=== PATIENT | female | born 1975 | race Caucasian/White ===

== ENCOUNTER 2020-06-10 10:01 | Outpatient (CLI) | payer OTHER, SELFPAY ==
--- NOTE | ~2020-06-10 | MM_ITS ---
EXAMINATION: MM screening [place] [facility] w bhavik HISTORY: Screening mammogram TECHNIQUE: Craniocaudal and mediolateral oblique 3-D tomosynthesis images were obtained and synthetic 2-D images were generated. CAD analysis was submitted and interpreted. COMPARISON: 06/08/2019, 06/04/2018 bilateral digital screening mammogram examinations BREAST PARENCHYMAL COMPOSITION: There are scattered areas of fibroglandular density. FINDINGS: Asymmetries are noted posteriorly in the lateral and medial left breast; diagnostic left ma mmogram is recommended, with ultrasound if required. Otherwise there is no evidence of suspicious mass, calcification, or architectural distortion to sug gest malignancy in either breast. There has been no suspicious interval change. IMPRESSION: 1. Left breast mammographic asymmetries on craniocaudal view 2. Diagnostic left mammogram is recommended, with ultrasound if required. BI-RADS Category 0: Incomplete: Needs additional imaging evaluation. Reviewed, dictated and finalized at location A.
== END 2020-06-10 10:02 | disposition home or self-care (01) ==
LOC: ANHIMG 10:05
PROVIDERS: PCP Family Medicine; Visit Provider Obstetrics & Gynecology
DX: Z12.31 Encounter for screening mammogram for malignant neoplasm of breast (principal); R92.8 Other abnormal and inconclusive findings on diagnostic imaging of breast
CPT/HCPCS: 77063; 77067

== ENCOUNTER 2020-07-05 12:25 | Outpatient (CLI) | payer OTHER, SELFPAY ==
--- NOTE | ~2020-07-05 | MM_ITS ---
EXAMINATION: MM diagnostic mammo unilat LT HISTORY: Mammographic asymmetries of left breast on screening craniocaudal view of 06/10/2020 TECHNIQUE: Additional 3-D tomosynthesis images of the left breast were performed and synthetic 2-D im ages were generated. Rolled medial and rolled lateral craniocaudal views of left breast. CAD analysis was submitted and interpreted. COMPARISON: 06/10/2020 bilateral digital screening mammogram FINDINGS: No reproducible mass or architectural distortion. No malignant calcification, skin thickeni ng or retraction. IMPRESSION: 1. No mammographic evidence of malignancy 2. Routine mammographic screening is recommended. BI-RADS Category 1: Negative Reviewed, dictated and finalized at location A.
== END 2020-07-05 12:26 | disposition home or self-care (01) ==
PROVIDERS: PCP Family Medicine; Visit Provider Obstetrics & Gynecology
DX: N64.59 Other signs and symptoms in breast (principal)
CPT/HCPCS: 77065

== ENCOUNTER 2020-10-10 07:34 | Outpatient (CLI) | payer OTHER, SELFPAY ==
[2020-10-10 07:56] LABS: Hematocrit 37.4 % (37.0-47.0); Hemoglobin 12.6 g/dL (12.0-15.0); Mean Corpuscular HGB Conc 33.7 g/dl (32-36); Mean Corpuscular Hemoglobin 29.8 pg (26-34); Mean Corpuscular Volume 88.4 fl (80-100); Mean Platelet Volume 10.9 fl (7.4-10.4); Platelet Count Result 184 k/mm3 (150-375); Red Blood Count 4.23 M/mm3 (4.2-5.4); Red Cell Distribution Width 13.1 % (11.5-14.5); White Blood Count 5.2 K/mm3 (4.5-10.0)
[2020-10-10 08:06] LABS: Anion Gap 5 mmol/L (8-16); Blood Urea Nitrogen 15 mg/dL (7-17); Calcium 8.6 mg/dL (8.4-10.2); Carbon Dioxide 27 mmol/L (22-30); Chloride 105 mmol/L (98-107); Cholesterol 162 mg/dL (0-200); Estimated Glomerular Filt Rate > 60; Glucose 86 mg/dL (65-105); HDL Direct 59 mg/dL; Potassium 4.3 mmol/L (3.4-5.0); Sodium 137 mmol/L (137-145); Triglycerides 54 mg/dL (<150)
[2020-10-10 08:17] LABS: LDL Cholesterol Direct 83 mg/dL
== END 2020-10-10 07:35 | disposition home or self-care (01) ==
PROVIDERS: PCP Family Medicine; Visit Provider Physician Assistant Medical
DX: Z13.220 Encounter for screening for lipoid disorders (principal); Z13.1 Encounter for screening for diabetes mellitus
CPT/HCPCS: 36415; 80048; 80061; 85027

== ENCOUNTER 2021-06-12 08:44 | Outpatient (CLI) | payer OTHER, SELFPAY ==
--- NOTE | ~2021-06-12 | MM_ITS ---
EXAMINATION: MM screening [facility] [place] BI w bhavik HISTORY: Screening mammogram TECHNIQUE: Craniocaudal and mediolateral oblique 3-D tomosynthesis images were obtained and synthetic 2-D images were generated. CAD analysis was submitted and interpreted. COMPARISON: 07/05/2020, 06/10/2020, 06/08/2019, 06/04/2018 BREAST PARENCHYMAL COMPOSITION: There are scattered areas of fibroglandular density. FINDINGS: There is no evidence of suspicious mass, calcification, or architectural distortion to sugg est malignancy in either breast. There has been no suspicious interval change. IMPRESSION: 1. No mammographic evidence of malignancy. 2. Recommend routine screening mammography in one year. BI-RADS Category 1: Negative Reviewed, dictated and finalized at location A.
== END 2021-06-12 08:45 | disposition home or self-care (01) ==
LOC: ANHIMG 08:46
PROVIDERS: PCP Family Medicine; Visit Provider Obstetrics & Gynecology
DX: Z12.31 Encounter for screening mammogram for malignant neoplasm of breast (principal)
CPT/HCPCS: 77063; 77067

== ENCOUNTER 2022-07-18 10:15 | Outpatient (CLI) | payer OTHER, SELFPAY ==
--- NOTE | ~2022-07-18 | MM_ITS ---
EXAMINATION: MM screening [place] [facility] w bhavik HISTORY: Screening mammogram TECHNIQUE: Craniocaudal and mediolateral oblique 3-D tomosynthesis images were obtained and synthetic 2-D images were generated. CAD analysis was submitted and interpreted. COMPARISON: 06/12/2021, 07/05/2020, 06/10/2020 right lateral screening mammogram examinations BREAST PARENCHYMAL COMPOSITION: There are scattered areas of fibroglandular density. FINDINGS: There is no evidence of suspicious mass, calcification, or architectural distortion to sugg est malignancy in either breast. There has been no suspicious interval change. IMPRESSION: 1. No mammographic evidence of malignancy. 2. Recommend routine screening mammography in one year. BI-RADS Category 1: Negative Reviewed, dictated and finalized at location A.
== END 2022-07-18 10:16 | disposition home or self-care (01) ==
PROVIDERS: PCP Family Medicine; Visit Provider Obstetrics & Gynecology
DX: Z12.31 Encounter for screening mammogram for malignant neoplasm of breast (principal)
CPT/HCPCS: 77063; 77067

== ENCOUNTER 2023-08-28 08:34 | Outpatient (CLI) | payer OTHER, SELFPAY ==
--- NOTE | 2023-08-28 09:07 | ECHO_ITS ---
Patient Info Name: Kelechi Benitez Age: 48 years : 1975 Gender: Female Ht: 66 in Wt: 150 lbs BSA: 1.79 m2 HR: 78 bpm BP: 116 / 67 mmHg Technical Quality: Fair Exam Date: 08/28/2023 9:13 AM Exam Location: Echo Lab Patient Status: Outpatient Admit Date: 08/28/2023 Staff Ordering Physician: Bee Loving PAC Engineering Drafter: Cynthia Carson RDCS Attending Provider: Bee Loving PAC Referring Physician: Fabienne BOOKER; Exam Type: CA echo doppler color flow Study Info Indications R01.1 - Cardiac murmur, unspecified Summary 1. Left ventricular chamber dimension is moderately enlarged. 2. Left ventricular systolic function is normal, estimated at 55-60%. 3. The left ventricular diastolic function is grade I diastolic dysfunction. 4. E/e' 5 is not elevated. 5. Global longitudinal strain is normal at -19.8%. 6. Left atrial chamber dimension is mildly enlarged. 7. The aortic valve is bicuspid. 8. There is mild aortic valve sclerosis. 9. There is mild aortic valve regurgitation. 10. There is mild mitral valve regurgitation. 11. There is mild tricuspid valve regurgitation. 12. Mild pulmonary hypertension, estimated pulmonary arterial systolic pressure is 49 mmHg. Left Ventricle E/e' 5 is not elevated. Global longitudinal strain is normal at -19.8%. Left ventricular chamber dimension is moderately enlarged. Left ventricular systolic function is normal, estimated at 55-60%. The left ventricular diastolic function is grade I diastolic dysfunction. Right Ventricle Right ventricular chamber dimension is normal. Right ventricular systolic function is normal. Left Atria Left atrial chamber dimension is mildly enlarged. Right Atria Right atrial chamber dimension is normal. Aortic Valve The aortic valve is bicuspid. There is mild aortic valve sclerosis. There is no aortic valve stenosis. There is mild aortic valve regurgitation. Pulmonic Valve There is no pulmonic regurgitation. Mitral Valve There is no mitral valve stenosis. There is mild mitral valve regurgitation. Tricuspid Valve There is mild tricuspid valve regurgitation. Mild pulmonary hypertension, estimated pulmonary arterial systolic pressure is 49 mmHg. Pericardium/Pleural There is no pericardial effusion. Inferior Vena Cava Normal inferior vena cava with >50% collapse upon inspiration consistent with normal right atrial pressure, 5 mmHg. Aorta The aortic root size at the sinus of Valsalva is normal. Left Ventricular Outflow Tract Name Value Normal LVOT 2D LVOT Diameter 2.1 cm LVOT Doppler LVOT Peak Gradient 8 mmHg LVOT Mean Gradient 4 mmHg LVOT VTI 31 cm LVOT VTI/AV VTI Ratio 0.9 LVOT Stroke Volume 113 ml LVOT CO 21.6 l/min LVOT CI 12.1 l/min/m2 Pulmonic Valve Name Value Normal PV Doppler
== END 2023-08-28 08:35 | disposition home or self-care (01) ==
PROVIDERS: PCP Family Medicine; Visit Provider Physician Assistant Medical
DX: R01.1 Cardiac murmur, unspecified (principal); I35.1 Nonrheumatic aortic (valve) insufficiency; I34.0 Nonrheumatic mitral (valve) insufficiency; I07.1 Rheumatic tricuspid insufficiency; I27.20 Pulmonary hypertension, unspecified; R93.1 Abnormal findings on diagnostic imaging of heart and coronary circulation
CPT/HCPCS: 93306

== ENCOUNTER 2023-08-30 12:18 | Outpatient (CLI) | payer OTHER, SELFPAY ==
--- NOTE | ~2023-08-30 | US_ITS ---
EXAMINATION: US soft tissue head and neck DATE: 08/30/2023 13:01 INDICATION: Posterior neck lump. TECHNIQUE: Multiple grayscale and Doppler ultrasound images of the head and neck were obtained. COMPARISON: Ultrasound 12/12/2018, cervical spine radiographs 12/04/2018 FINDINGS: There is no abnormal mass or lymphadenopathy in the patient's area of concern. IMPRESSION: 1. No abnormal mass or lymphadenopathy in the patient's area of concern. Reviewed, dictated and finalized at location E. SHOP CLEANER
--- NOTE | ~2023-08-30 | MM_ITS ---
EXAMINATION: MM screening [place] [facility] w bhavik HISTORY: Screening TECHNIQUE: Craniocaudal and mediolateral oblique 3-D tomosynthesis images were obtained and synthetic 2-D images were generated. CAD analysis was submitted and interpreted. COMPARISON: Comparison to multiple prior studies sequentially, with oldest reviewed study dated 06/04. BREAST PARENCHYMAL COMPOSITION: Breast composed of scattered areas of fibroglandular density FINDINGS: There is no evidence of suspicious mass, calcification, or architectural distortion to sugg est malignancy in either breast. There has been no suspicious interval change. IMPRESSION: 1. No mammographic evidence of malignancy. 2. Recommend routine screening mammography in one year. BI-RADS Category 1: Negative Reviewed, dictated and finalized at location A. F STRATEGY OFFICER
== END 2023-08-30 12:19 | disposition home or self-care (01) ==
LOC: ANHIMG 12:20
PROVIDERS: PCP Family Medicine; Visit Provider Obstetrics & Gynecology
DX: Z12.31 Encounter for screening mammogram for malignant neoplasm of breast (principal); M79.89 Other specified soft tissue disorders
CPT/HCPCS: 76536; 77063; 77067

== ENCOUNTER 2024-05-31 05:26 | Emergency (ER) | payer OTHER, SELFPAY ==
[2024-05-31] VITALS (8 sets, daily range): BP systolic 101–150; BP diastolic 52–71; PULSE 59–82; RESP 14–20; TEMP 36.4–36.5; O2SAT 98–100
[2024-05-31] MEDS: EPINEPHrine HCL INJ 1 MG/ML AMPUL 0.3 MG IM (05:36)
[2024-05-31] MEDS: methylPREDNISolone SOD SUCC 40 MG VIAL IV PUSH (05:38)
[2024-05-31] MEDS: FAMOTIDINE 20 MG/2 ML VIAL IV PUSH (05:38)
[2024-05-31] MEDS: diphenhydrAMINE HCl INJ 50 MG/ML VIAL 25 MG IV PUSH (05:39)
--- NOTE | 2024-05-31 05:45 | ED.ALLEREA ---
HPI - Allergic Reaction General Chief complaint: Allergic Reaction Stated complaint: allergic reaction Time Seen by Provider: 05/31/24 05:33 History of Present Illness HPI narrative: New patient woke up in the middle night and noticed a very itchy rash between her legs, she initially thought it may a mosquito bites that she took some Benadryl, and then started noticing swelling to her lip, she thought it may be a cold sore so she took Valtrex, and her looked at her today and saw the swelling to her lips and told her to come to the emergency room. She had a similar presentation back in college when she found out she was allergic to penicillins, however she has not taken any new medications, has not had any new new foods or exposures to anything that she knows of. No GI upset, shortness of breath, or sore throat or difficulty breathing Related Data Allergies Allergy/AdvReac Type Severity Reaction Status Date / Time Penicillins Allergy Severe Swelling Verified 05/31/24 05:35 of Lip/Tongue/Throat Review of Systems Review of Systems: All systems reviewed & are unremarkable except as noted in HPI and below [facility] Past Medical History Medical History Abnormal Pap smear of cervix HX CX DYSPLASIA 09/2001 BMI 23.0-23.9, adult Broken arm (~1998) lt arm Encounter for annual routine gynecological examination Encounter for IUD insertion 06/07/11 Mirena insertion Encounter for IUD removal 05/21/12 Mirena removal Screening mammogram, encounter for Surgical History Surgical History H/O LEEP 2000 cervical dysplasia History of 03/25/09 primary c/s--arrest of descent rpt c/s Family History Family History Father Acute myocardial infarction Mother Hypertension Hyperlipidemia Osteoporosis Sibling No problems noted. Other Breast cancer maternal aunt Grandparent Heart disease grandmother Social History Social History Smoking status: Never smoker Second hand tobacco smoke exposure: No Alcohol intake: current Drinks per week: 3 Substance use: never Substance use type: does not use Lack of Transportation: No Lack of Food: Never True Current Housing: I Have Housing Concerned About Future Housing: No Difficulty Paying Gas/Electric Bills: No Difficulty Paying for Meds: No Currently Unemployed: No Education: Bachelor's Degree Difficulty w/ Childcare or Family Care: No Living arrangements: other Additional living arrangements comments: Occupation/Education: occupation Additional occupation/education comments: manager pe Gender identity (if verbalized by the patient): Female Sexual Orientation (if Verbalized by the Patient): Straight or Heterosexual Exam Narrative: EXAMINATION OF ORGAN SYSTEMS/BODY AREAS: Constitutional: Vital signs per nursing GENERAL:[No acute distress, non-toxic appearing.] HEAD: Normal with no signs of head trauma. EYES: Slight periorbital swelling ENT: Swelling to lips comfort small amount of swelling to tongue, normal speech and voice LUNGS: Nonlabored breathing. HEART: [Regular rate and rhythm] ABD: nondistention EXT: Normal range of motion SKIN: Urticaria to thighs NEURO: [Alert and oriented x 3. No gross focal sensory or strength deficits.] PSYCH: Normal affect Course Vital Signs Vital signs: Vital Signs Temperature 97.5 F L 05/31/24 05:31 Pulse Rate 67 05/31/24 05:31 Respiratory Rate 19 05/31/24 05:31 Blood Pressure 150/71 H 05/31/24 05:31 Pulse Oximetry 99 05/31/24 05:31 Oxygen Delivery Room Air 05/31/24 05:31 Temperature 97.5 F L 05/31/24 05:31 Pulse Rate 60 05/31/24 06:31 Respiratory Rate 19 05/31/24 06:31 Blood Pre
[2024-05-31] MEDS: LACTATED RINGERS 1,000 ML 999 ML IV CONT (06:57)
== END 2024-05-31 08:01 | disposition home or self-care (01) ==
PROVIDERS: Emergency Provider Emergency Medicine; PCP Family Medicine
DX: T78.40XA Allergy, unspecified, initial encounter (principal); X58.XXXA Exposure to other specified factors, initial encounter
CPT/HCPCS: 96361; 96372; 96374; 96375; 99284; J0171; J1200; J2919; J7030; J7120

== ENCOUNTER 2024-06-01 12:01 | Observation (INO) | payer OTHER, SELFPAY ==
[2024-06-01] VITALS (10 sets, daily range): BP systolic 104–131; BP diastolic 48–65; PULSE 53–82; RESP 17–20; TEMP 36.3–36.8; O2SAT 95–100; BMI 26.4
--- NOTE | ~2024-06-01 | XR_ITS ---
EXAMINATION: XR chest 1V portable DATE: 06/01/2024 12:51 INDICATION: Anaphylaxis. TECHNIQUE: A single frontal view of the chest was obtained. COMPARISON: None. FINDINGS: There is no pneumonia, pleural effusion, or pneumothorax. The heart size is normal. IMPRESSION: 1. No acute cardiopulmonary disease. Reviewed, dictated and finalized at location A.
--- NOTE | 2024-06-01 12:13 | ECG_ITS ---
Test Date: 2024-06-01 12:27:57 Measurements Intervals [place] Rate: 57 P: 20 WI: 160 QRS: 67 QRSD: 97 T: 23 QT: 424 QTc: 414 Interpretive Statements SINUS BRADYCARDIA WITH SINUS ARRHYTHMIA NONSPECIFIC T-WAVE ABNORMALITY BORDERLINE ECG No previous ECG available for comparison Electronically Signed On 06-01-2024 12:39:11 CDT by Eder Orozco M.D.
--- NOTE | 2024-06-01 12:14 | ED.ALLEREA ---
HPI - Allergic Reaction General Chief complaint: Allergic Reaction Stated complaint: allergic reaction Time Seen by Provider: 06/01/24 12:04 History of Present Illness HPI narrative: This is a 49-year-old female no pertinent past medical history who presents to the ED for recurrent anaphylactic type symptoms. Patient was seen in the emergency department last night for concerns of Inflectra reaction involving bottom lip swelling, diffuse urticaria and subjective shortness of breath. Patient was treated with steroids, Pepcid, epinephrine and felt significantly improved. She was observed for several hours prior to discharge with epinephrine pen. Patient states she went home feeling significant improved however throughout the day and into the night she started developing worsening swelling and rash described as itchy aortic area. She started developing top lip swelling and used her epinephrine injector again at about 230 this morning. She states she tried taking her Pepcid and Benadryl without significant relief throughout the day and proceed to the ER this morning. Presently she is endorsing the urticarial rash which appears to be spreading involving both her arms and legs, chest and hands, feet. She is endorsing top lip swelling which appears to be worsening but does not involve the oropharynx, no difficulty swallowing, no difficulty phonating, no drooling. Able tolerate p.o. intake. She has normal reassuring vital signs. No other recent illnesses or injuries. No recent or new exposures to her knowledge. No new medications or titration is otherwise. Related Data Allergies Allergy/AdvReac Type Severity Reaction Status Date / Time Penicillins Allergy Severe Swelling Verified 06/01/24 12:14 of Lip/Tongue/Throat Review of Systems Review of Systems: As reviewed above in HPI [facility] Past Medical History Medical History Abnormal Pap smear of cervix HX CX DYSPLASIA 09/2001 BMI 23.0-23.9, adult Broken arm (~1998) lt arm Encounter for annual routine gynecological examination Encounter for IUD insertion 06/07/11 Mirena insertion Encounter for IUD removal 05/21/12 Mirena removal Screening mammogram, encounter for Surgical History Surgical History H/O LEEP 2000 cervical dysplasia History of 03/25/09 primary c/s--arrest of descent rpt c/s Family History Family History Father Acute myocardial infarction Mother Hypertension Hyperlipidemia Osteoporosis Sibling No problems noted. Other Breast cancer maternal aunt Grandparent Heart disease grandmother Social History Social History Smoking status: Never smoker Second hand tobacco smoke exposure: No Alcohol intake: current Drinks per week: 4 Substance use: never Substance use type: does not use Do You Feel Safe in your Home?: Yes Lack of Transportation: No Lack of Food: Never True Current Housing: I Have Housing Concerned About Future Housing: No Difficulty Paying Gas/Electric Bills: No Difficulty Paying for Meds: No Currently Unemployed: No Education: Bachelor's Degree Difficulty w/ Childcare or Family Care: No Living arrangements: other Additional living arrangements comments: Occupation/Education: occupation Additional occupation/education comments: manager quality Gender identity (if verbalized by the patient): Female Sexual Orientation (if Verbalized by the Patient): Straight or Heterosexual Spiritual care concerns: No Exam Narrative: GENERAL: [Well-appearing, well-nourished, and in no acute distress.] HEAD: [Normocephalic, atraumatic.] EYES: [PERRLA and EOMI.] ENT: Top lip appears markedly swollen wi
[2024-06-01] MEDS: LACTATED RINGERS 1,000 ML 999 ML IV CONT (12:19)
[2024-06-01] MEDS: EPINEPHrine HCL INJ 1 MG/ML AMPUL 0.5 MG SUB-Q (12:20)
[2024-06-01] MEDS: FAMOTIDINE 20 MG/2 ML VIAL IV PUSH (12:20)
[2024-06-01] MEDS: diphenhydrAMINE HCl INJ 50 MG/ML VIAL IV PUSH ×3 (12:20→22:42)
[2024-06-01] MEDS: methylPREDNISolone SOD SUCC 125 MG VIAL IV PUSH (12:20)
[2024-06-01 12:23] LABS: Basophils Percent Auto 0.1 % (0.2-1.2); Hematocrit 40.2 % (37.0-47.0); Hemoglobin 13.4 g/dL (12.0-15.0); Immature Granulocyte Absolute 0.12 K/mm3 (0.00-0.031); Immature Granulocyte Percent A 0.6 % (0-0.5); Lymphocytes Absolute Auto 0.81 K/mm3 (0.9-3.2); Lymphocytes Percent Auto 4.2 % (18.3-44.2); Mean Corpuscular HGB Conc 33.3 g/dl (32-36); Mean Corpuscular Hemoglobin 30.1 pg (26-34); Mean Corpuscular Volume 90.3 fl (80-100); Mean Platelet Volume 11.4 fl (7.4-10.4); Monocytes Absolute Auto 0.6 K/mm3 (0.1-0.6); Monocytes Percent Auto 3.3 % (2.6-8.5); Neutrophils Absolute Auto 17.7 K/mm3 (1.3-6.7); Neutrophils Percent Auto 91.8 % (45.5-73.1); Platelet Count Result 255 k/mm3 (150-375); Red Blood Count 4.45 M/mm3 (4.2-5.4); Red Cell Distribution Width 13.2 % (11.5-14.5); White Blood Count 19.3 K/mm3 (4.5-10.0)
[2024-06-01 12:36] LABS: Alanine Aminotransferase 21 U/L (6-35); Albumin Level 4.5 g/dL (3.5-5.1); Alkaline Phosphatase 63 U/L (38-126); Anion Gap 13 mmol/L (4-12); Aspartate Amino Transferase 28 U/L (14-36); Bilirubin,Total 0.6 mg/dL (0.2-1.3); Blood Urea Nitrogen 11 mg/dL (7-17); CRP 0.9 mg/dL (<1.0); Calcium 9.7 mg/dL (8.4-10.2); Carbon Dioxide 23 mmol/L (22-30); Chloride 103 mmol/L (98-107); Estimated CRCL calculation 79 ml/min; Estimated Glomerular Filt Rate > 60; Glucose 126 mg/dL (65-110); Potassium 4.2 mmol/L (3.4-5.0); Sodium 139 mmol/L (137-145)
[2024-06-01 12:52] LABS: Erythrocyte Sedimentation Rate 9 mm/hr (0-20)
--- NOTE | 2024-06-01 14:37 | PM.IMHP ---
H&P: HPI History of Present Illness Date/Time: 06/01/24 14:37 Chief Complaint: biphasic anaphylactic reaction Narrative: This is a 49-year-old female patient admitted to the hospital for observation after 2 ER visits for anaphylaxis. Patient reports that around a.m. yesterday morning to patient woke to oral swelling, hives and itching all over. She came to the emergency department where she was treated with Benadryl, steroids Pepcid and epinephrine. Patient was discharged home after resolution of symptoms with prescription for epinephrine pen, Claritin and Pepcid. She felt well at time of discharge but around dinner time she began to have skin itching that returned. She states that she went to bed and woke up around 230 early this morning with swelling primarily of her upper lip as well as all over and a raspy throat but no shortness of breath wheezing or difficulty swallowing. Patient reports that she took the medicine that was prescribed including administering epinephrine pen and thought that she was feeling better so she laid back down did not come in for evaluation at that time. Symptoms returned throughout the morning and patient came back to the emergency department for re-evaluation. While in the emergency department she was treated with IV steroids, Benadryl, Pepcid and larger dose 0.5 mg epinephrine subcutaneous again with resolution of symptoms. Patient was admitted for observation with close monitoring to the IMU. She denies taking any prescription medications or NSAIDs this weekend. She does state that she takes magnesium supplement and another vitamin product [id number]. She thought that the exposure may have been a Lavender oil that she places on her pillows but after the 1st event she threw away her pillow got a new one, changed all bedding and still had return of symptoms while asleep. Patient reports that her son previously underwent allergy workup and has multiple environmental allergies was previously on allergy shots but the patient has only had allergic reaction to penicillin in the past. At time of evaluation patient has minimal itch to the back of her scalp but no remaining symptoms oral swelling, raspy voice, hives or rash. Review of Systems Review of Systems: All systems reviewed & are unremarkable except as noted in HPI and below PMF[facility] Past Medical History Medical History Abnormal Pap smear of cervix HX CX DYSPLASIA 09/2001 BMI 23.0-23.9, adult Broken arm (~1998) lt arm Encounter for annual routine gynecological examination Encounter for IUD insertion 06/07/11 Mirena insertion Encounter for IUD removal 05/21/12 Mirena removal Screening mammogram, encounter for Surgical History Surgical History H/O LEEP 2000 cervical dysplasia History of 03/25/09 primary c/s--arrest of descent rpt c/s Family History Family History Father Acute myocardial infarction Mother Hypertension Hyperlipidemia Osteoporosis Sibling No problems noted. Other Breast cancer maternal aunt Grandparent Heart disease grandmother Social History Social History Smoking status: Never smoker Second hand tobacco smoke exposure: No Alcohol intake: current Drinks per week: 4 Substance use: never Substance use type: does not use Do You Feel Safe in your Home?: Yes Lack of Transportation: No Lack of Food: Never True Current Housing: I Have Housing Concerned About Future Housing: No Difficulty Paying Gas/Electric Bills: No Difficulty Paying for Meds: No Currently Unemployed: No Education: Bachelor's Degree Difficulty w/ Childcare or Family Care: No Living arrangements: other Additional living arrangements comments:
--- NOTE | 2024-06-01 16:12 | ADMGEN ---
This patient, Kelechi Benitez, was admitted to IMU Room 209-01 at 1531. Patient/family oriented to hospital policies and general routines including ID bracelet, bed and alarms, visiting hours, pain management, procedures, bathroom and other care routines, personal items, smoking policy, room service/diet, and visiting hours. Information on how to activate the Rapid Response Team has been discussed. Patient/Family are encouraged to report perceived risks to care and to ask questions if they do not understand what they are told or what they should do.
[2024-06-01] MEDS: FAMOTIDINE 20 MG TABLET PO (20:15)
[2024-06-01] MEDS: LORATADINE 10 MG TABLET PO (20:15)
[2024-06-01] MEDS: methylPREDNISolone SOD SUCC 40 MG VIAL IV PUSH (20:33)
[2024-06-02] VITALS (16 sets, daily range): BP systolic 102–111; BP diastolic 47–55; PULSE 51–101; RESP 16–18; TEMP 36.4–36.9; O2SAT 95–99
[2024-06-02] MEDS: methylPREDNISolone SOD SUCC 40 MG VIAL IV PUSH ×2 (01:22→05:31)
[2024-06-02] MEDS: LORazepam INJ (*CRX) 2 MG/ML VIAL 1 MG IV PUSH (02:24)
[2024-06-02 05:29] LABS: Basophils Percent Auto 0.1 % (0.2-1.2); Hematocrit 40.8 % (37.0-47.0); Hemoglobin 13.2 g/dL (12.0-15.0); Immature Granulocyte Absolute 0.24 K/mm3 (0.00-0.031); Immature Granulocyte Percent A 1.3 % (0-0.5); Lymphocytes Absolute Auto 0.55 K/mm3 (0.9-3.2); Mean Corpuscular HGB Conc 32.4 g/dl (32-36); Mean Corpuscular Hemoglobin 29.8 pg (26-34); Mean Corpuscular Volume 92.1 fl (80-100); Mean Platelet Volume 11.8 fl (7.4-10.4); Monocytes Absolute Auto 0.8 K/mm3 (0.1-0.6); Monocytes Percent Auto 4.3 % (2.6-8.5); Neutrophils Percent Auto 91.3 % (45.5-73.1); Platelet Count Result 246 k/mm3 (150-375); Red Blood Count 4.43 M/mm3 (4.2-5.4); Red Cell Distribution Width 13.5 % (11.5-14.5); White Blood Count 18.6 K/mm3 (4.5-10.0)
[2024-06-02 05:42] LABS: Alanine Aminotransferase 18 U/L (6-35); Albumin Level 3.9 g/dL (3.5-5.1); Alkaline Phosphatase 56 U/L (38-126); Anion Gap 12 mmol/L (4-12); Aspartate Amino Transferase 22 U/L (14-36); Bilirubin,Total 0.5 mg/dL (0.2-1.3); Blood Urea Nitrogen 14 mg/dL (7-17); Calcium 9.3 mg/dL (8.4-10.2); Carbon Dioxide 23 mmol/L (22-30); Chloride 106 mmol/L (98-107); Estimated CRCL calculation 79 ml/min; Estimated Glomerular Filt Rate > 60; Glucose 134 mg/dL (65-110); Magnesium 2.1 mg/dL (1.6-2.3); Potassium 3.9 mmol/L (3.4-5.0); Sodium 141 mmol/L (137-145)
[2024-06-02] MEDS: FAMOTIDINE 20 MG/2 ML VIAL IV PUSH ×2 (09:20→20:25)
[2024-06-02] MEDS: hydrOXYzine HCl 50 MG/ML VIAL IM ×2 (09:20→20:25)
[2024-06-02] MEDS: LORATADINE 10 MG TABLET PO ×2 (09:20→20:25)
[2024-06-02] MEDS: TRIAMCINOLONE ACET 0.1% OINT 15 GM TUBE 1 APPLIC TOPICAL ×2 (09:21→20:26)
[2024-06-02] MEDS: methylPREDNISolone SOD SUCC 125 MG VIAL 60 MG IV PUSH ×3 (09:21→20:25)
[2024-06-02 09:56] LABS: Immunoglobulin A 141 mg/dL (70-400); Immunoglobulin G 697 mg/dL (700-1600); Immunoglobulin M 46 mg/dL (40-230)
[2024-06-02 10:10] LABS: CRP 2.4 mg/dL (<1.0)
[2024-06-02 10:19] LABS: Erythrocyte Sedimentation Rate 13 mm/hr (0-20)
--- NOTE | 2024-06-02 13:03 | PM.IMPN ---
Progress Note: A&P Assessment and Plan (1) Anaphylactic reaction: Code(s): T78.2XXA - Anaphylactic shock, unspecified, initial encounter Status: Acute Assessment and Plan: treated for anaphylactic reaction with resolution of symptoms, administered home treatment including epinephrine pen after symptoms returned then had symptom resolution only for symptoms to return requiring another ER visit with IV medications and subcutaneous epinephrine Unknown source of allergic response, elevated white blood cell count primarily neutrophils with normal CRP and ESR 06/02/24: No longer meeting shock criteria. Etiology of anaphylaxis is uncertain. Pt has no new exposures. She has no new foods, products or other identifiable sources. Possible Autoimmune?? Check labs of IGG, IGM, IGA for deficiency PRN Epinephrine Change Benadryl to Hydroxyzine Increase Solumedrol to 60 mg from 40 mg Add Kenalog ointment Increase Pepcid to BID. (2) Angioedema: Code(s): T78.3XXA - Angioneurotic edema, initial encounter Status: Acute Assessment and Plan: Initial ER visit symptoms included tongue swelling and lips, subsequent visit involved upper lip swelling and raspy voice. patient denied any abdominal pain/cramping nausea vomiting dyspnea wheezing chest tightness. patient admitted to IMU for closer monitoring 06/02/24: See Plan for #1 above. If any acutely worsening symptoms, consider transfer to facility with immunology coverage. Suspect autoimmune component. Time Spent With Patient Time with patient: 25 - 35 minutes Subjective Date/time seen: 06/02/24 0830 Interval history: This pleasant 49 year old female pt who was admitted with anaphylaxis type symptoms was evaluated at the bedside in interval assessment today. She continues to have severe rash, itching and continued swelling about the face despite dosing of IV steroids, epi, H2 antagonist and antihistamines. She denies any difficulty breathing or swallowing. She denies any new contacts, illness symptoms or oteher new acute complaints. Review of Systems Review of Systems: All systems reviewed & are unremarkable except as noted in HPI and below Exam Narrative: GENERAL: Well-appearing, well-nourished, and appears to be having an allergic reaction. HEAD: Normocephalic, atraumatic. ENT:? Mucous membranes moist. no lip or tongue swelling, normal phonation, no stridor, but there is swelling around the bilateral eyes with fluid collection below. Patent oropharynx, no erythema, edema, or exudate noted. CHEST: Clear to auscultation.? No respiratory distress or wheezing HEART: Regular rate and rhythm. ? Normal peripheral pulses. ABDOMEN: Soft, nontender, nondistended. EXTREMITIES: Normal range of motion. No peripheral edema. SKIN: Widespread raised urticarial rash all over the back, extremities, down the right side of her head and face, and chest and abdomen. NEURO: Alert and oriented x3. PSYCH: Normal mood and affect Objective Data Vital Signs Vital Signs: Vital Signs - 24 hr 06/01/24 13:46 06/01/24 14:36 06/01/24 15:13 Temperature Pulse Rate 82 76 63 Respiratory Rate 20 20 19 Blood Pressure 112/53 L 104/52 L 106/63 Pulse Oximetry 100 97 99 Oxygen Delivery 06/01/24 15:18 06/01/24 16:04 06/01/24 16:04 Temperature 97.4 F L Pulse Rate 73 69 58 L Respiratory Rate 19 20 Blood Pressure 109/57 L 109/48 L Pulse Oximetry 98 99 Oxygen Delivery 06/01/24 18:00 06/01/24 19:58 06/01/24 20:00 Temperature 98.3 F Pulse Rate 60 58 L 71 Respiratory Rate 20 Blood Pressure 117/62 Pulse Oximetry 95 Oxygen Delivery 06/01/24 20:00 06/01/24 22:00 06/02/24 00:00 Temperature 98.0 F Pulse Rate 53 L 56 L Respiratory Rate 16 Blood Pressure 106/47 L Pulse Oximetry 95 Oxygen Delivery Room Air 06/02/24 00:00 06/02/24 00:00 06/02/24 02:00 Temperature Pulse Rate 56 L 61 Respiratory Rate B
[2024-06-03] VITALS (13 sets, daily range): BP systolic 101–112; BP diastolic 48–63; PULSE 56–78; RESP 18–20; TEMP 36.3–36.9; O2SAT 94–100
[2024-06-03 04:42] LABS: Basophils Percent Auto 0.1 % (0.2-1.2); Hematocrit 36.5 % (37.0-47.0); Hemoglobin 12.6 g/dL (12.0-15.0); Immature Granulocyte Absolute 0.15 K/mm3 (0.00-0.031); Lymphocytes Absolute Auto 0.66 K/mm3 (0.9-3.2); Lymphocytes Percent Auto 4.4 % (18.3-44.2); Mean Corpuscular HGB Conc 34.5 g/dl (32-36); Mean Corpuscular Hemoglobin 31.3 pg (26-34); Mean Corpuscular Volume 90.8 fl (80-100); Mean Platelet Volume 11.9 fl (7.4-10.4); Monocytes Absolute Auto 0.4 K/mm3 (0.1-0.6); Monocytes Percent Auto 2.6 % (2.6-8.5); Neutrophils Absolute Auto 13.9 K/mm3 (1.3-6.7); Neutrophils Percent Auto 91.9 % (45.5-73.1); Platelet Count Result 232 k/mm3 (150-375); Red Blood Count 4.02 M/mm3 (4.2-5.4); Red Cell Distribution Width 13.5 % (11.5-14.5); White Blood Count 15.1 K/mm3 (4.5-10.0)
[2024-06-03 04:50] LABS: Alanine Aminotransferase 17 U/L (6-35); Albumin Level 3.4 g/dL (3.5-5.1); Alkaline Phosphatase 51 U/L (38-126); Anion Gap 8 mmol/L (4-12); Aspartate Amino Transferase 29 U/L (14-36); Bilirubin,Total 0.4 mg/dL (0.2-1.3); Blood Urea Nitrogen 20 mg/dL (7-17); Calcium 8.8 mg/dL (8.4-10.2); Carbon Dioxide 25 mmol/L (22-30); Chloride 105 mmol/L (98-107); Estimated CRCL calculation 79 ml/min; Estimated Glomerular Filt Rate > 60; Glucose 129 mg/dL (65-110); Magnesium 2.3 mg/dL (1.6-2.3); Sodium 138 mmol/L (137-145)
[2024-06-03] MEDS: hydrOXYzine HCl 50 MG/ML VIAL IM (05:27)
[2024-06-03] MEDS: methylPREDNISolone SOD SUCC 125 MG VIAL 60 MG IV PUSH ×3 (05:27→18:19)
[2024-06-03] MEDS: LORATADINE 10 MG TABLET PO (08:58)
[2024-06-03] MEDS: FAMOTIDINE 20 MG/2 ML VIAL 40 MG IV PUSH ×2 (09:51→16:31)
[2024-06-03 14:03] LABS: ANA Cascade Screen NEGATIVE (NEGATIVE)
--- NOTE | 2024-06-03 16:12 | PM.IMPN ---
Progress Note: A&P Assessment and Plan (1) Anaphylactic reaction: Code(s): T78.2XXA - Anaphylactic shock, unspecified, initial encounter Status: Acute Assessment and Plan: treated for anaphylactic reaction with resolution of symptoms, administered home treatment including epinephrine pen after symptoms returned then had symptom resolution only for symptoms to return requiring another ER visit with IV medications and subcutaneous epinephrine Unknown source of allergic response, elevated white blood cell count primarily neutrophils with normal CRP and ESR 06/03/24: Etiology of anaphylaxis is uncertain. No new exposures observed. Denies new foods, products or other identifiable sources. Possible Autoimmune?? IGG, IGM, IGA results reviewed. CRP elevated with normal eosinophils. Continue PRN Epinephrine Continue Hydroxyzine Continue Solumedrol 60 mg for now. Kenalog ointment Pepcid to BID. U transfer request placed per pt request. (2) Angioedema: Code(s): T78.3XXA - Angioneurotic edema, initial encounter Status: Acute Assessment and Plan: 06/03/24: Resolved/ Plan Patient reports another episode of rash and urticaria early this AM. Transfer to [facility] hospital for further care done per pt request. Continue IV steroids, famotidine and hydroxyzine PRN. Airway intact with no cardiopulmonary symptoms. Time Spent With Patient Time with patient: 25 - 35 minutes Subjective Date/time seen: 06/03/24 10:12 Interval history: This pleasant 49 year old female pt who was admitted with anaphylaxis type symptoms was evaluated at the bedside in interval assessment today. She continues to have severe rash, itching and continued swelling about the face despite dosing of IV steroids, epi, H2 antagonist and antihistamines. She denies any difficulty breathing or swallowing. She denies any new contacts, illness symptoms or oteher new acute complaints. Patient requesting to be transferred to a higher level of care hospital as she feels her symptoms are not improving much. Review of Systems Review of Systems: All systems reviewed & are unremarkable except as noted in HPI and below Exam Narrative: GENERAL: Well-appearing, well-nourished, generalized body rash, mainly to back and LE. HEAD: Normocephalic, atraumatic. ENT:? Mucous membranes moist. no lip or tongue swelling, normal phonation, no stridor. Patent oropharynx, no erythema, edema, or exudate noted. CHEST: Clear to auscultation.? No respiratory distress or wheezing HEART: Regular rate and rhythm. ? Normal peripheral pulses. ABDOMEN: Soft, nontender, nondistended. EXTREMITIES: Normal range of motion. No peripheral edema. SKIN: Widespread raised urticarial rash all over the back, extremities, face, chest and abdomen. NEURO: Alert and oriented x3. PSYCH: Normal mood and affect Psych: Mental Status: mental status grossly normal Affect: normal affect Objective Data Vital Signs Vital Signs: Vital Signs - 24 hr 06/02/24 18:00 06/02/24 19:51 06/02/24 20:00 Temperature 97.6 F Pulse Rate 74 65 65 Respiratory Rate 18 18 Blood Pressure 111/47 L Pulse Oximetry 97 97 Oxygen Delivery Room Air 06/03/24 00:00 06/03/24 00:00 06/03/24 04:00 Temperature 98.1 F Pulse Rate 67 67 67 Respiratory Rate 20 20 20 Blood Pressure 101/53 L Pulse Oximetry 94 94 94 Oxygen Delivery Room Air Room Air 06/03/24 04:19 06/02/24 20:00 06/02/24 22:00 Temperature 98.3 F Pulse Rate 67 61 53 L Respiratory Rate 20 Blood Pressure 101/48 L Pulse Oximetry 94 Oxygen Delivery 06/03/24 00:00 06/03/24 02:00 06/03/24 04:00 Temperature Pulse Rate 61 59 L 61 Respiratory Rate Blood Pressure Pulse Oximetry Oxygen Delivery 06/03/24 06:00 06/03/24 07:50 06/03/24 08:00 Temperature 97.5 F L Pulse Rate 68 78 67 Respiratory Rate 20 Blood Pressure Pulse Oximetry 100 Oxygen Delivery 06/03/24
--- NOTE | 2024-06-03 17:01 | PM.DS ---
DS: Admitting Diagnosis Discharge Date 06/03/24 Admitting Diagnosis Biphasic Anaphylaxis DS: Discharge Diagnosis Discharge Diagnosis (1) Anaphylactic reaction: Code(s): T78.2XXA - Anaphylactic shock, unspecified, initial encounter Status: Acute Assessment and Plan: - Appears to be sresolving. - No cardiopulmonary symptoms noted and rash much improved. (2) Angioedema: Code(s): T78.3XXA - Angioneurotic edema, initial encounter Status: Acute Assessment and Plan: - Resolved. Plan Patient with much improvement to generalized rash of unclear etiology. No cardiopulmonary symptoms noted and airway patent. Patient is medically stable for discharge and states will follow-up with licensing specialist if symptoms return. Patient will be discharged on a tapered steroid dose, famotidine and epinephrine injection. DS: Summary Hospital Course Reason for hospitalization: Anaphylactic shock Hospital Course: Patient is a 49-year-old female patient admitted to the hospital for observation after 2 ER visits for anaphylaxis. Patient reports that around a.m. yesterday morning to patient woke to oral swelling, hives and itching all over. She came to the emergency department where she was treated with Benadryl, steroids Pepcid and epinephrine. Patient was discharged home after resolution of symptoms with prescription for epinephrine pen, Claritin and Pepcid. She felt well at time of discharge but around dinner time she began to have skin itching that returned. She states that she went to bed and woke up around 230 early this morning with swelling primarily of her upper lip as well as all over and a raspy throat but no shortness of breath wheezing or difficulty swallowing. Patient reports that she took the medicine that was prescribed including administering epinephrine pen and thought that she was feeling better so she laid back down did not come in for evaluation at that time. Symptoms returned throughout the morning and patient came back to the emergency department for re-evaluation. While in the emergency department she was treated with IV steroids, Benadryl, Pepcid and larger dose 0.5 mg epinephrine subcutaneous again with resolution of symptoms. Patient was admitted for observation with close monitoring to the IMU and symptoms appear to have much improved, with rash appearing resolved and no cardiopulmonary symptoms noted. Patient is medically stable for home discharge and will follow-up with PCP for further management. Status at Discharge Functional status at discharge: independent ambulation Overall status at discharge: patient is progressing back to baseline Time Spent with Patient Time attestation: Total time spent providing and/or coordinating discharge services: Time spent: Greater than 30 minutes Exam Narrative: GENERAL: Well-appearing, well-nourished, generalized body rash, mainly to back and LE. HEAD: Normocephalic, atraumatic. ENT:? Mucous membranes moist. no lip or tongue swelling, normal phonation, no stridor. Patent oropharynx, no erythema, edema, or exudate noted. CHEST: Clear to auscultation.? No respiratory distress or wheezing HEART: Regular rate and rhythm. ? Normal peripheral pulses. ABDOMEN: Soft, nontender, nondistended. EXTREMITIES: Normal range of motion. No peripheral edema. SKIN: Much improvement to urticarial rash on back, extremities, face, chest and abdomen, compared to earlier this AM. NEURO: Alert and oriented x3. PSYCH: Normal mood and affect Skin: Other: Much improvement in generalized rash compared to earlier today. Psych: Mental Status: mental status grossly normal Affect: normal affect DS: Data Data Completed and Pending Labs on day of discharge: Labs from last 24 hours 06/03/24 06/02/24 04:15 04:53 WBC 15.1 H RBC 4.02 L Hgb 12.6 Hct 36.5 L MCV 90.8 MCH 31.3 D MCHC 34.5 RDW 13.5 Plt Count 232 MPV 11.9 H Immature
== END 2024-06-03 18:36 | disposition home or self-care (01) ==
LOC: ANHED 14:31 → ANHIMU 06-02 06:22
PROVIDERS: Nurse Practitioner; Admitting Provider Internal Medicine; Emergency Provider Student in an Organized Health Care Education/Training Program; PCP Family Medicine; Visit Provider Nurse Practitioner Adult Health
DX: T78.2XXA Anaphylactic shock, unspecified, initial encounter (principal); T78.3XXA Angioneurotic edema, initial encounter
CPT/HCPCS: 36415; 71045; 80053; 82784; 83735; 85025; 85652; 86038; 86140; 86225; 86235; 86364; 93005; 96361; 96372; 96374; 96375; 96376; 99285; A9270; G0378; J0171; J1200; J2060; J2919; J3410; J7120

== ENCOUNTER 2024-08-14 13:28 | Outpatient (CLI) | payer OTHER, SELFPAY ==
[2024-08-14 13:55] LABS: Hematocrit 39.7 % (37.0-47.0); Hemoglobin 13.5 g/dL (12.0-15.0); Mean Corpuscular Hemoglobin 30.1 pg (26-34); Mean Corpuscular Volume 88.4 fl (80-100); Mean Platelet Volume 11.2 fl (7.4-10.4); Platelet Count Result 222 k/mm3 (150-375); Red Blood Count 4.49 M/mm3 (4.2-5.4); Red Cell Distribution Width 12.3 % (11.5-14.5); White Blood Count 6.2 K/mm3 (4.5-10.0)
== END 2024-08-14 13:29 | disposition home or self-care (01) ==
LOC: ANHLAB 13:30
PROVIDERS: PCP Family Medicine; Visit Provider Obstetrics & Gynecology
DX: N92.6 Irregular menstruation, unspecified (principal)
CPT/HCPCS: 36415; 85027

== ENCOUNTER 2024-08-20 01:36 | Day surgery (SDC) | payer OTHER, SELFPAY ==
[2024-08-12 14:08] VITALS: BMI 24.2
--- NOTE | 2024-08-12 14:23 | SUR.PREOP ---
Report to the Outpatient Waiting Room, entrance under the green pavilion located off [facility], at time 7:30a.m. on date 08/20/2024. Planned Procedure Time: 9:30a.m.? Time changes happen often and if your time is changed the preop area will call you the afternoon before. - You and your visitor will be asked to self-screen and do not enter if you have any COVID symptoms. Please call surgeon if you need to reschedule. - A mask is optional within the hospital at this time. Patients may have clear liquids (water, carbonated beverages, clear teas, apple juice) until 3 hours prior to surgery with a maximum of 20 ounces. - No food from midnight until time of surgery and no smoking - Infants may have breast milk until 4 hours before surgery, infant formula 6 hours prior to surgery. - Children will be allowed to drink immediately following surgery.? If applicable, please bring a bottle or sippy cup to assist with drinking. Juice, water, soda, and popsicles are readily available.? For infants on formula, please bring formula the day of surgery.? Pacifiers are allowed. Take only the following medications with a SIP of water on the morning of surgery: N/A DO NOT STOP ANY OF YOUR OTHER PRESCRIPTION MEDICATIONS PRIOR TO SURGERY EXCEPT THE FOLLOWING Medications to discontinue per physician Vitamins Date to take last dose 08/17/2024 Please no make-up, nail japanese, hairspray, perfume, deodorant, or body powder the day of surgery.? No jewelry (including any body piercings) or valuables the day of surgery, leave them at home.? Please take a shower or bath the night before, or the morning of, surgery with an antibacterial soap.? Wear comfortable, loose fitting clothing.? Children are encouraged to wear pajamas. - Jewelry must be removed prior to entering the operating room.? Rings and piercings that are not removed may be cut off. - The hospital will not accept responsibility for valuables.? - Please leave all valuables, including medications, at home the day of surgery. If you are going home after surgery, a licensed otr flatbed driver must drive you home.? - NO public transportation without another adult if you receive anesthesia. - We recommend that an adult stay with you for 24 hours following discharge. - We also recommend that you do not drive, make important decision, drink alcoholic beverages, or take any drugs that were not prescribed by your health care provider for at least 24 hours after your discharge time. For Pediatric surgeries, we recommend two adults accompany the child home. Follow any additional instructions given to you from your surgeon. Telephone instructions given to Kelechi Benitez and asked if any additional questions and then verbalized understanding. Patient advised to call surgeon office or pre surgery nurse liaison [phone] if any additional questions.
[2024-08-20] VITALS (7 sets, daily range): BP systolic 107–124; BP diastolic 46–78; PULSE 55–104; RESP 14–19; TEMP 36.2–36.9; O2SAT 98–100
--- NOTE | 2024-08-20 07:27 | PM.IMHP ---
H&P: HPI History of Present Illness Date/Time: 08/20/24 07:27 49-year-old female presents for treatment of heavy irregular vaginal bleeding. Past 6-8 months cycles of increased in amount 5-7 days 3-5 days heavy clotting cramping significant amount of discomfort during this time as well. Ultrasound revealed mildly enlarged uterus and thickened endometrium but no fibroids or other abnormalities were appreciated. Also desires bilateral salpingectomy, we have discussed the permanence failure rate increased risk of ectopic and regret and patient strongly desires. Chief Complaint: Menometrorrhagia Review of Systems Review of Systems: All systems reviewed & are unremarkable except as noted in HPI and below PMFSH Past Medical History Medical History Abnormal Pap smear of cervix HX CX DYSPLASIA 09/2001 BMI 23.0-23.9, adult Broken arm (~1998) lt arm Encounter for annual routine gynecological examination Encounter for IUD insertion 06/07/11 Mirena insertion Encounter for IUD removal 05/21/12 Mirena removal Screening mammogram, encounter for Surgical History Surgical History H/O LEEP 2000 cervical dysplasia History of 03/25/09 primary c/s--arrest of descent rpt c/s Family History Family History Father Acute myocardial infarction Mother Hypertension Hyperlipidemia Osteoporosis Sibling No problems noted. Other Breast cancer maternal aunt Grandparent Heart disease grandmother Social History Social History Smoking status: Never smoker Second hand tobacco smoke exposure: No Alcohol intake: current Drinks per week: 4 Substance use: never Substance use type: does not use Do You Feel Safe in your Home?: Yes Lack of Transportation: No Lack of Food: Never True Current Housing: I Have Housing Concerned About Future Housing: No Difficulty Paying Gas/Electric Bills: No Difficulty Paying for Meds: No Currently Unemployed: No Education: Bachelor's Degree Difficulty w/ Childcare or Family Care: No Living arrangements: with family Additional living arrangements comments: Occupation/Education: occupation 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 Gender identity (if verbalized by the patient): Female Sexual Orientation (if Verbalized by the Patient): Straight or Heterosexual Spiritual care concerns: No Meds Home Medications and Allergies Home Medications Medication Instructions Recorded Confirmed Type epinephrine 0.3 mg/0.3 mL 0.3 mg (0.3 mL) IM Q5-15M PRN 05/31/24 08/12/24 Rx injection, auto-injector (EpiPen) anaphylaxis #2 ea multivit with minerals-iron 18 1 tablet PO DAILY 08/12/24 08/12/24 History mg-folic ac 400 mcg-vit K 25 mcg tablet (Adults Multivitamin) Allergies Allergy/AdvReac Type Severity Reaction Status Date / Time Penicillins Allergy Severe Swelling Verified 08/12/24 14:08 of Lip/Tongue/Throat diphenhydramine AdvReac Intermediate Agitated Verified 08/12/24 14:08 [From Benadryl] Exam Resp: Effort & Inspection: normal respiratory effort Auscultation: clear to auscultation bilaterally Cardio: Rate: regular rate Rhythm: regular rhythm GI: Inspection: normal to inspection Auscultation: normal bowel sounds : External Female Exam: normal external appearance Speculum Exam - Vagina: normal appearance of the vagina Speculum Exam - Cervix: normal appearance of the cervix Bimanual exam- vagina & uterus: enlarged (8-10 week size) Bimanual Exam- Adnexa, other: normal adnexae Assessment and Plan Assessment and plan (1) Menorrhagia: Code(s): N92.0 - Excessive and frequent menstruation with regular cycle Status: Acute (2) Encounter for female sterilization procedure: Code(s): Z30.2 - Encounter for sterilization Status: Acute Plan 1. Hysteroscopy with D&C as well as endometrial ablation 2. Laparoscopic bilateral salpingectomy
--- NOTE | 2024-08-20 07:30 | WPDHPUPDATE1 ---
History and Physical Update Update Date/Time: 08/20/24 07:30 History and Physical has been reviewed, including an updated exam of the patient. There are NO changes in the patient's condition. Risks, benefits, and alternatives have been discussed and questions answered. Patient agrees to proceed with procedure.
[2024-08-20] MEDS: LACTATED RINGERS 1,000 ML 30 ML IV CONT (08:15)
[2024-08-20] MEDS: ACETAMINOPHEN 500 MG TABLET 1000 MG PO (08:40)
[2024-08-20] MEDS: KETOROLAC 15 MG/ML VIAL (*BKC) IV PUSH (08:41)
[2024-08-20 09:03] LABS: BEDSIDEPREGUCG Negative (Negative)
--- NOTE | 2024-08-20 10:00 | P.PNAN_ITS ---
Anes - Initial Pre Proc Eval Procedure: Operation Date: 08/20/24 09:30 Proposed Procedures p Hysteroscopy Dilation and Curettage with Dahlia Endometrial Ablation - Humberto Chau MD s Bilateral Laparoscopic Salpingectomy - Humberto Chau MD Date/Time: 08/20/24 10:00 Surgeon: Humberto Chau MD Pre Op Diagnosis: abnormal uterine bleeding Patient Data Age: 49 Gender: F Height: 1.68 m Weight: 69.6 kg Last Vital Signs Temp 98.4 F 08/20/24 08:00 Pulse 104 H 08/20/24 08:00 Resp 14 08/20/24 08:00 BP 115/78 08/20/24 08:00 Pulse Ox 98 08/20/24 08:00 O2 Del Method Room Air 08/20/24 08:00 Allergies Allergy/AdvReac Type Severity Reaction Status Date / Time Penicillins Allergy Severe Swelling Verified 08/12/24 14:08 of Lip/Tongue/Throat diphenhydramine AdvReac Intermediate Agitated Verified 08/12/24 14:08 [From Benadl] Home Medications Medication Instructions Recorded Confirmed Type epinephrine 0.3 mg/0.3 mL 0.3 mg (0.3 mL) IM Q5-15M PRN 05/31/24 08/20/24 Rx injection, auto-injector (EpiPen) anaphylaxis #2 ea multivit with minerals-iron 18 1 tablet PO DAILY 08/12/24 08/20/24 History mg-folic ac 400 mcg-vit K 25 mcg tablet (Adults Multivitamin) Laboratory Tests 08/20/24 08:00 POC Urine HCG, Qual Negative (Negative) Results Review: All pre-operative results and documents have been reviewed as part of the pre- operative evaluation. [facility] Past Medical History Medical History Abnormal Pap smear of cervix HX CX DYSPLASIA 09/2001 BMI 23.0-23.9, adult Broken arm (~1998) lt arm Encounter for annual routine gynecological examination Encounter for IUD insertion 06/07/11 Mirena insertion Encounter for IUD removal 05/21/12 Mirena removal Screening mammogram, encounter for Surgical History Surgical History H/O LEEP 2000 cervical dysplasia History of 03/25/09 primary c/s--arrest of descent rpt c/s Family History Family History Father Acute myocardial infarction Mother Hypertension Hyperlipidemia Osteoporosis Sibling No problems noted. Other Breast cancer maternal aunt Grandparent Heart disease grandmother Social History Social History Smoking status: Never smoker Second hand tobacco smoke exposure: No Alcohol intake: current Drinks per week: 4 Substance use: never Substance use type: does not use Do You Feel Safe in your Home?: Yes Lack of Transportation: No Lack of Food: Never True Current Housing: I Have Housing Concerned About Future Housing: No Difficulty Paying Gas/Electric Bills: No Difficulty Paying for Meds: No Currently Unemployed: No Education: Bachelor's Degree Difficulty w/ Childcare or Family Care: No Living arrangements: with family Additional living arrangements comments: Occupation/Education: occupation Additional occupation/education comments: manager privacy Gender identity (if verbalized by the patient): Female Sexual Orientation (if Verbalized by the Patient): Straight or Heterosexual Spiritual care concerns: No Anes - Eval Final PreProcedure Day of Procedure 08/20/24 10:00 Results Review: All pre-operative results and documents have been reviewed as part of the pre- operative evaluation. Informed Consent: The patient's anesthetic plan and its attendant risks and benefits were discussed with the patient/family/POA. Questions were solicited and answers provided to the satisfaction of the patient/family/POA.
[2024-08-20] MEDS: ceFAZolin 2 GM/D5W 50 ML 2 GM/50 ML BAG IVPB (10:19)
[2024-08-20 10:50] LABS: BEDSIDEPREGUCG Negative (Negative)
--- NOTE | 2024-08-20 10:55 | P.OP_ITS ---
Procedure Note - Detailed Date of Procedure 08/20/24 Pre-op Diagnosis 1. Menometrorrhagia 2. Dysmenorrhea 3. Undesired fertility Post-op Diagnosis Same Procedure Performed 1. Hysteroscopy with uterine curettings 2. Ablation 3. laparoscopic bilateral salpingectomy Surgeon Humberto Chau MD Anesthesia General Findings uterus with mildly thickened endometrial cavity. Left fallopian tube with scarring consistent with endometriosis. Description of Procedure Patient prepped and draped in usual manner for this procedure. Cervical instruments were placed for uterine mobility throughout the case. Abdominal trocar sites were placed under direct visualization and the mesial salpinx bilaterally was cauterized and cut to remove the fallopian tubes. Left was scarred to the pelvic sidewall consistent with endometriosis. Ovaries and uterus without abnormality.Gas allowed to escape, trocars removed, incisions approximated using 4-0 Monocryl. Cervix was then dilated to allow the hysteroscope to place which revealed findings as noted above. Curettings were obtained and Dahlia instrument was placed and cycle was activated. At the end of the cycle hysteroscopic exam revealed destruction throughout no other abnormalities. At this point the proc edure was considered terminated and the patient was sent to recovery room in stable condition. Estimated Blood Loss 10 Drains No Packing No Pathology Yes Complications No immediate complications Condition Stable Disposition PACU [facility] Billing Surgery - Charge Forward: Surgery Billing
[2024-08-20] MEDS: oxyCODONE HCL (*CRX) 5 MG TAB IR PO (12:15)
== END 2024-08-20 13:00 | disposition home or self-care (01) ==
PROVIDERS: PCP Family Medicine; Visit Provider Obstetrics & Gynecology
PROC: 0U5B8ZZ Destruction of Endometrium, Via Natural or Artificial Opening Endoscopic (ICD-10-PCS; CPT 58563; principal; 2024-08-20 09:30)
PROC: (CPT 49320; 2024-08-20 09:30)
DX: Z30.2 Encounter for sterilization (principal); N80.202 Endometriosis of left fallopian tube, unspecified depth; G89.18 Other acute postprocedural pain; Z98.890 Other specified postprocedural states; Z80.3 Family history of malignant neoplasm of breast; Z82.49 Family history of ischemic heart disease and other diseases of the circulatory system
CPT/HCPCS: 58661; 58563; 88302; 88305; A9270; J0690; J1100; J1596; J1885; J2003; J2250; J2405; J2704; J3010; J7120

== ENCOUNTER 2024-09-29 09:46 | Outpatient (CLI) | payer OTHER, SELFPAY ==
--- NOTE | ~2024-09-29 | MM_ITS ---
EXAMINATION: MM screening [facility] BI w bhavik HISTORY: Screening TECHNIQUE: Craniocaudal and mediolateral oblique 3-D tomosynthesis images were obtained and synthetic 2-D images were generated. CAD analysis was submitted and interpreted. COMPARISON: Comparison to multiple prior studies sequentially, with oldest reviewed study dated 06/08. BREAST PARENCHYMAL COMPOSITION: Not dense: There are scattered areas of fibroglandular density. FINDINGS: There is no evidence of suspicious mass, calcification, or architectural distortion to sugg est malignancy in either breast. There has been no suspicious interval change. IMPRESSION: 1. No mammographic evidence of malignancy. 2. Recommend routine screening mammography in one year. BI-RADS Category 1: Negative Reviewed, dictated and finalized at location B. [employer]ISTING [employer]
== END 2024-09-29 09:47 | disposition home or self-care (01) ==
LOC: ANHIMG 09:47
PROVIDERS: PCP Family Medicine; Visit Provider Obstetrics & Gynecology
DX: Z12.31 Encounter for screening mammogram for malignant neoplasm of breast (principal)
CPT/HCPCS: 77063; 77067